=== PATIENT | male | born 1990 | race Caucasian/White ===

== ENCOUNTER 2019-07-30 16:33 | Emergency (ER) | payer BC ==
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
== END 2019-07-30 17:38 | disposition home or self-care (01) ==
LOC: JD.ED 16:33
DX: T81.49XA Infection following a procedure, other surgical site, initial encounter (principal)
CPT/HCPCS: 87075; 87205; 99283